=== PATIENT | female | born 1975 | race Caucasian/White ===

== ENCOUNTER 2018-12-01 15:31 | Observation (INO) | payer SELFPAY ==
--- NOTE | 2018-12-01 15:44 | PDOC ---
Rapid Medical Evaluation Time Seen by Provider: 12/01/18 15:43 Medical Evaluation: 12/01/18 15:43 I have performed a brief in-person evaluation of this patient. The patient presents with a chief complaint of: Anemia, hgb 6.6 in clinic today. C/o dizziness. Pt has h/o menorrhagia, anemia, no h/o transfusions, last took iron 8 months ago Pertinent physical exam findings:Appears pale but stable I have ordered the following:labs The patient will proceed to the ED for further evaluation. Discharge Disposition - Diagnosis Anemia Qualifiers: Anemia type: unspecified type Qualified Code(s): D64.9 - Anemia, unspecified - Referrals - Patient Instructions - Post Discharge Activity
[2018-12-01 16:10] LABS: BASO % 0.5 % (0-2.0); EOS % 2.1 % (0-4.5); LYMPH % 36.7 % (8-40); MCHC 28.2 g/dl (32.0-36.0); MEAN PLT VOLUME 8.3 fl (7.5-11.1); MONO % 6.4 % (3.8-10.2); NEUT % 54.3 % (42.8-82.8); PLATELET COUNT 272 K/MM3 (134-434); RBC 4.18 M/mm3 (3.60-5.2); RDW 22.2 % (11.6-15.6); WHITE BLOOD COUNT 7.5 K/mm3 (4.0-10.0)
[2018-12-01 16:19] LABS: EPI CELLS 2.1 /HPF (0-5/HPF); URINE APPEARANCE CLEAR; URINE BACTERIA 27.1 /hpf (NEGATIVE); URINE BILIRUBIN NEGATIVE (NEGATIVE); URINE CASTS 1 /lpf (0-8); URINE COLOR YELLOW; URINE GLUCOSE (UA) NEGATIVE (NEGATIVE); URINE KETONE NEGATIVE (NEGATIVE); URINE LEUK ESTERASE TRACE (NEGATIVE); URINE NITRITE NEGATIVE (NEGATIVE); URINE PROTEIN NEGATIVE (NEGATIVE); URINE RBC 1 /hpf (0-4); URINE WBC 3 /hpf (0-5)
[2018-12-01 16:26] LABS: MCH 15.5 pg (25.7-33.7)
[2018-12-01 16:28] LABS: HEMOGLOBIN 6.5 GM/dL (10.7-15.3)
[2018-12-01 16:37] LABS: INR 1.03 (0.83-1.09); PROTHROMBIN TIME (PATIENT) 12.2 SEC (9.7-13.0)
[2018-12-01 16:53] LABS: ALBUMIN 4.1 g/dl (3.4-5.0); ALK PHOS 88 U/L (45-117); ANION GAP 8 MMOL/L (8-16); BILIRUBIN,TOTAL 0.4 mg/dL (0.2-1); BLOOD UREA NITROGEN 13 mg/dL (7-18); CHLORIDE 108 mmol/L (98-107); CO2 24 mmol/L (21-32); CREATININE 0.6 mg/dL (0.55-1.3); GLUCOSE,RANDOM 95 mg/dL (74-106); POTASSIUM 3.9 mmol/L (3.5-5.1); SGOT/AST 14 U/L (15-37); SGPT/ALT 23 U/L (13-61); SODIUM 140 mmol/L (136-145)
--- NOTE | 2018-12-01 17:36 | PDOC ---
History of Present Illness - General Chief Complaint: Revisit, Lab Variance Stated Complaint: LOW BLOOD COUNT Time Seen by Provider: 12/01/18 15:43 History Source: Patient Exam Limitations: No Limitations - History of Present Illness Initial Comments: 12/01/18 17:29 43 yo female pmh of iron def anemia and menorrhagia sent to the ED by PCP (Dr. Higgins) for anemia. Pt admits to 1 week of intermittent HAs, generalized weakness and dizziness. LMP 11/04/2018 that lasted 8 days described as normal. Of note, Pt states 8 months ago she Past History - Past Medical History Allergies/Adverse Reactions: Allergies Allergy/AdvReac Type Severity Reaction Status Date / Time No Known Allergies Allergy Verified 12/01/18 15:53 Anemia: Yes COPD: No - Immunization History Immunization Up to Date: No - Suicide/Smoking/Psychosocial Hx Smoking History: Never smoked *Physical Exam - Vital Signs Last Vital Signs Temp Pulse Resp BP Pulse Ox 98.2 F 79 18 149/47 L 100 12/01/18 15:44 12/01/18 15:44 12/01/18 15:44 12/01/18 15:44 12/01/18 15:44 ED Treatment Course - LABORATORY CBC & Chemistry Diagram: 12/01/18 15:58 12/01/18 15:58 - ADDITIONAL ORDERS Additional order review: Laboratory Results 12/01/18 12/01/18 12/01/18 16:00 16:00 15:58 WBC RBC Hgb Hct MCV MCH MCHC RDW Plt Count MPV Absolute Neuts (auto) Neutrophils % Lymphocytes % Monocytes % Eosinophils % Basophils % Nucleated RBC % PT with INR INR Sodium Potassium Chloride Carbon Dioxide Anion Gap BUN Creatinine Creat Clearance w eGFR Random Glucose Calcium Total Bilirubin AST ALT Alkaline Phosphatase Total Protein Albumin Serum , Qual Negative Urine Color Yellow Urine Appearance Clear Urine pH 7.0 Ur Specific [place] 1.015 Urine Protein Negative Urine Glucose (UA) Negative Urine Ketones Negative Urine Blood Negative Urine Nitrite Negative Urine Bilirubin Negative Urine Urobilinogen 1.0 Ur Leukocyte Esterase Trace Urine WBC (Auto) 3 Urine RBC (Auto) 1 Urine Casts (Auto) 1 U Epithel Cells (Auto) 2.1 Urine Bacteria (Auto) 27.1 Blood Type O POSITIVE Antibody Screen Negative 12/01/18 12/01/18 12/01/18 15:58 15:58 15:58 WBC 7.5 RBC 4.18 Hgb 6.5 L* Hct 23.0 L MCV 55.0 L MCH 15.5 L MCHC 28.2 L RDW 22.2 H Plt Count 272 MPV 8.3 Absolute Neuts (auto) 4.0 Neutrophils % 54.3 Lymphocytes % 36.7 Monocytes % 6.4 Eosinophils % 2.1 Basophils % 0.5 Nucleated RBC % 0 PT with INR 12.20 INR 1.03 Sodium 140 Potassium 3.9 Chloride 108 H Carbon Dioxide 24 Anion Gap 8 BUN 13 Creatinine 0.6 Creat Clearance w eGFR 109.11 Random Glucose 95 Calcium 9.0 Total Bilirubin 0.4 AST 14 L ALT 23 Alkaline Phosphatase 88 Total Protein 8.0 Albumin 4.1 Serum , Qual Urine Color Urine Appearance Urine pH Ur Specific [place] Urine Protein Urine Glucose (UA) Urine Ketones Urine Blood Urine Nitrite Urine Bilirubin Urine Urobilinogen Ur Leukocyte Esterase Urine WBC (Auto) Urine RBC (Auto) Urine Casts (Auto) U Epithel Cells (Auto) Urine Bacteria (Auto) Blood Type Antibody Screen 12/01/18 15:58 RBC 4.18 MCV 55.0 L MCHC 28.2 L RDW 22.2 H MPV 8.3 Neutrophils % 54.3 Lymphocytes % 36.7 Monocytes % 6.4 Eosinophils % 2.1 Basophils % 0.5 Medical Decision Making - Medical Decision Making 12/01/18 20:45 consent for PRBC attained *DC/Admit/Observation/Transfer Diagnosis at time of Disposition: Anemia Qualifiers: Anemia type: unspecified type Qualified Code(s): D64.9 - Anemia, unspecified - Discharge Dispostion Condition at time of disposition: Stable Decision to Admit order: Yes - Referrals Referrals: Eliot Higgins MD [Primary Care Provider] - - Patient Instructions - Post Discharge Activity
--- NOTE | 2018-12-01 17:53 | PDOC ---
Attending Attestation - Resident Resident Name: BoogielocSanjay - ED Attending Attestation I have performed the following: I have examined & evaluated the patient, The case was reviewed & discussed with the resident, I agree w/resident's findings & plan - HPI HPI: 12/01/18 17:54 43 yo female pmh of iron def anemia and menorrhagia sent to the ED by PCP (Dr. Higgins) for anemia. Pt also admits to 1 week of intermittent HAs, generalized weakness and dizziness. LMP 11/04/18 - with history of regular periods, but heavy initially lasting typically 8-10 days. prior anemia, but no need for transfusion previously. no bloody stools, no AP. does not take iron supplements, has had iron infusion previously for anemia. 12/01/18 19:02 - Physicial Exam PE: 12/01/18 19:04 Agree with the resident's HPI and PE as documented in the electronic medical record. NAD, well appearing, PERRL, EOMI, pale conjunctiva, anicteric; neck supple. lungs clear, RRR, abdomen soft nontender. MOLINA x4, no focal neuro deficits. No peripheral edema. pale skin color for ethnicity, WWP. - Medical Decision Making 12/01/18 19:00 See HPI for details Vital signs reviewed, wnl. Prior notes reviewed, including admissions, discharges and consultations. laboratory results and imaging reviewed, basic labs and lytes wnl, notable for acute on chronic anemia, baseline Hb closer to 8, now down to 6.5/23 UA_neg, no blood. neg preg test. EKG normal sinus rhythm at 87 bpm, no interval abnormalities, narrow QRS, ST and T wave segments and morphology normal. Ed course: no acute events. txs x2, pRBC x 2 units and recheck consent in chart provided in [place] via [employer] interpretation. transfuse for symptomatic anemia likely 2/2 menorrhagia. pelvic sono to eval for pelvic etiology/fibroid as source of menorrhagia and anemia observation status in ED for transfusion and monitor for reactions/side effects and treat as necessary. 12/01/18 19:01 12/02/18 16:18 Heart Score/ECG Review #1 ECG reviewed & interpreted by me at: 18:15 General ECG Interpretation: Sinus Rhythm, Normal Rate, Normal Intervals 12/01/18 19:01 EKG normal sinus rhythm at 87 bpm, no interval abnormalities, narrow QRS, ST and T wave segments and morphology normal.
[2018-12-01 18:38] LABS: ANISOCYTOSIS 2+; MACROCYTOSIS 2+; PLATELET ESTIMATE ADEQUATE
--- NOTE | 2018-12-01 19:46 | PDOC ---
*Physical Exam - Vital Signs Last Vital Signs Temp Pulse Resp BP Pulse Ox 98.2 F 79 18 149/47 L 100 12/01/18 15:44 12/01/18 15:44 12/01/18 15:44 12/01/18 15:44 12/01/18 15:44 ED Treatment Course - LABORATORY CBC & Chemistry Diagram: 12/01/18 15:58 12/01/18 15:58 - ADDITIONAL ORDERS Additional order review: Laboratory Results 12/01/18 12/01/18 12/01/18 18:24 18:24 16:00 PT with INR INR Sodium Potassium Chloride Carbon Dioxide Anion Gap BUN Creatinine Creat Clearance w eGFR Random Glucose Calcium Total Bilirubin AST ALT Alkaline Phosphatase Total Protein Albumin Serum , Qual Negative Urine Color Urine Appearance Urine pH Ur Specific [place] Urine Protein Urine Glucose (UA) Urine Ketones Urine Blood Urine Nitrite Urine Bilirubin Urine Urobilinogen Ur Leukocyte Esterase Urine WBC (Auto) Urine RBC (Auto) Urine Casts (Auto) U Epithel Cells (Auto) Urine Bacteria (Auto) Blood Type Cancelled O POSITIVE Antibody Screen Cancelled Crossmatch See Detail 12/01/18 12/01/18 12/01/18 16:00 15:58 15:58 PT with INR INR Sodium 140 Potassium 3.9 Chloride 108 H Carbon Dioxide 24 Anion Gap 8 BUN 13 Creatinine 0.6 Creat Clearance w eGFR 109.11 Random Glucose 95 Calcium 9.0 Total Bilirubin 0.4 AST 14 L ALT 23 Alkaline Phosphatase 88 Total Protein 8.0 Albumin 4.1 Serum , Qual Urine Color Yellow Urine Appearance Clear Urine pH 7.0 Ur Specific [place] 1.015 Urine Protein Negative Urine Glucose (UA) Negative Urine Ketones Negative Urine Blood Negative Urine Nitrite Negative Urine Bilirubin Negative Urine Urobilinogen 1.0 Ur Leukocyte Esterase Trace Urine WBC (Auto) 3 Urine RBC (Auto) 1 Urine Casts (Auto) 1 U Epithel Cells (Auto) 2.1 Urine Bacteria (Auto) 27.1 Blood Type O POSITIVE Antibody Screen Negative Crossmatch See Detail 12/01/18 15:58 PT with INR 12.20 INR 1.03 Sodium Potassium Chloride Carbon Dioxide Anion Gap BUN Creatinine Creat Clearance w eGFR Random Glucose Calcium Total Bilirubin AST ALT Alkaline Phosphatase Total Protein Albumin Serum , Qual Urine Color Urine Appearance Urine pH Ur Specific [place] Urine Protein Urine Glucose (UA) Urine Ketones Urine Blood Urine Nitrite Urine Bilirubin Urine Urobilinogen Ur Leukocyte Esterase Urine WBC (Auto) Urine RBC (Auto) Urine Casts (Auto) U Epithel Cells (Auto) Urine Bacteria (Auto) Blood Type Antibody Screen Crossmatch 12/01/18 15:58 RBC 4.18 MCV 55.0 L MCHC 28.2 L RDW 22.2 H MPV 8.3 Neutrophils % 54.3 Lymphocytes % 36.7 Monocytes % 6.4 Eosinophils % 2.1 Basophils % 0.5 Medical Decision Making - Medical Decision Making 12/01/18 19:44 Pt comes with symptomatic anemia. She has known metrorrhagia. She will get transfused in the ER. She will be evaluated and likely admitted to "short stay obs status." *DC/Admit/Observation/Transfer Diagnosis at time of Disposition: Anemia Qualifiers: Anemia type: unspecified type Qualified Code(s): D64.9 - Anemia, unspecified - Referrals Referrals: Eliot Higgins MD [Primary Care Provider] - - Patient Instructions - Post Discharge Activity
--- NOTE | 2018-12-01 21:33 | PN ---
Teaching Attending Note Name of Resident: Maya Stephen ATTENDING PHYSICIAN STATEMENT I saw and evaluated the patient. I reviewed the resident's note and discussed the case with the resident. I agree with the resident's findings and plan as documented. SUBJECTIVE: Patient is 43 year old woman with PMH of iron def anemia and menorrhagia sent to the ER by PCP (Dr. Higgins) for anemia. Patient also admits to 1 week of intermittent headaches, generalized weakness and dizziness. LMP was 11/04/18 - with history of regular periods, but heavy initially lasting typically 8-10 days. Known to have anemia, but no need for transfusion previously. No chronic NSAID use. Denies bloody stools, abdominal pain, vomiting, chest pain, hematuria or dysuria. Does not take iron supplements. OBJECTIVE: Alert Vital Signs Period Temp Pulse Resp BP Sys/[place] Pulse Ox Last 24 Hr 98.2 F 79 18 149/47 100 HEENT: No Jaundice, eye redness or discharge, PERRLA, EOMI. Conjunctival pallor. Normocephalic, atraumatic. External ears are normal and hearing is grossly intact. No nasal discharge. Neck: Supple, nontender. No palpable adenopathy or thyromegaly. No JVD Chest: Good effort. Clear to auscultation and percussion. Heart: Regular. No S3, rub or murmur Abdomen: Not distended, soft, nontender and no HSM. No rebound or guarding. Normal bowel sounds. Ext: Peripheral pulses intact. No leg edema. Skin: Warm and dry. No petechiae, rash or ecchymosis. Neuro: Alert. Oriented x3. CN 2-12 grossly intact. Sensation grossly intact in all four extremities and DTR are symmetric. Psych: Appropriate mood and affect. Good insight. Abnormal Lab Results 12/01/18 12/01/18 12/01/18 15:58 15:58 15:58 Hgb 6.5 L* Hct 23.0 L MCV 55.0 L MCH 15.5 L MCHC 28.2 L RDW 22.2 H Chloride 108 H AST 14 L Crossmatch See Detail 12/01/18 18:24 Hgb Hct MCV MCH MCHC RDW Chloride AST Crossmatch See Detail ASSESSMENT AND PLAN: 1. Symptomatic Low MCV Anemia - Likely primarily due to excess menstrual blood loss. Initial stool guaiac is negative - will get two more and get CT abd/ pelvis. EKG shows NSR and no significant ST-T wave changes. 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 Will send blood for iron studies and proceed with transfusion of PRBC. Prescribe high quality oral iron supplement upon discharge. 2. DVT prophylaxis - Lovenox 40 mg SQ q 24 hours. 3. Advance directives - Full code
--- NOTE | 2018-12-02 00:12 | HP ---
CHIEF COMPLAINT: Anemia PCP: Dr. Higgins HISTORY OF PRESENT ILLNESS: 43 y/o F with PMHx of Iron Def. Anemia, Menorrhagia presents after being told by her PMD that she has a low hgb. Patient reports last visiting her PMD and OBGyn approx. 8 months ago; At that time, she was started on PO Iron supplementation. She shortly after ceased from taking the tablets bc she said they made her vomit. She has not had any follow up then. Approx. 2 weeks ago, patient started to complain of weakness, dizziness and Headache. She denies any BRBPR, Hemoptysis, hematuria. Additionally denies any trauma. LMP 11/04/18 which was normal for her. Patient mentions she has periods that last 10 days, and are heavy for the first 5 days. Patient denies any transfusions in the past. Denies any hx of NSAID use. Patient mentions that her last pap smear was normal 8 months ago. Additionally she mentions having a TVUS at that time. Denies any hx of STI/STDs. Denies any personal or family hx of Ovarian, uterine, vaginal or colorectal cancers. Deneis any recent fevers, chills, chest pain, SOB, nausea, vomiting, diarrhea, constipation. I was informed that approx 5-10 minutes after the PRBC transfusion began, patient began to feel shakey, clammy, and diaphoretic. At this time, the transfusion was stopped. Recent Travel: Denies PAST MEDICAL HISTORY: As per HPI PAST SURGICAL HISTORY: Denies Social History: Smoking: Denies Alcohol: Denies Drugs: Denies Family History: Sister: Stomach Ca Mother: DM, CVA Father: Alcoholic cirrhosis Allergies No Known Allergies Allergy (Verified 12/01/18 15:53) HOME MEDICATIONS: Home Medications Medication Instructions Recorded NK [No Known Home Medication] 12/01/18 REVIEW OF SYSTEMS As per HPI PHYSICAL EXAMINATION Vital Signs - 24 hr 12/01/18 15:44 Temperature 98.2 F Pulse Rate 79 Respiratory 18 Rate Blood Pressure 149/47 L O2 Sat by Pulse 100 Oximetry (%) Orthostatic Vitals: Supine 113/46 HR81, Sitting 120/65 HR 88, Standing 124/63 HR 88 GENERAL: A&Ox3, NAD HEAD: NCAT EYES: PERRL, EOMI, Mild conjunctival pallor EARS, NOSE, THROAT: Moist mucous membranes NECK: Supple LUNGS: clear to auscultation bilaterally. No wheezes, and no crackles. HEART: Regular rate and rhythm, normal S1 and S2 without murmur ABDOMEN: Soft, nontender, not distended, + bowel sounds, no guarding LOWER EXTREMITIES: No peripheral edema. NEUROLOGICAL: Cranial nerves II-XII intact. Normal speech SKIN: Warm, dry RECTAL: Stool in the vault, Good sphincter tone, No external hemmorrhoids visualized, No internal hemorrhoids felt, No active bleeding noted, No blood on the tip of the glove Laboratory Results - last 24 hr 12/01/18 12/01/18 12/01/18 15:58 15:58 15:58 WBC 7.5 RBC 4.18 Hgb 6.5 L* Hct 23.0 L MCV 55.0 L MCH 15.5 L MCHC 28.2 L RDW 22.2 H Plt Count 272 MPV 8.3 Absolute Neuts (auto) 4.0 Neutrophils % 54.3 Lymphocytes % 36.7 Monocytes % 6.4 Eosinophils % 2.1 Basophils % 0.5 Nucleated RBC % 0 Hypochromia 3+ Platelet Estimate Adequate Polychromasia 1+ Poikilocytosis 1+ Anisocytosis 2+ Microcytosis 1+ Macrocytosis 2+ PT with INR 12.20 INR 1.03 Sodium 140 Potassium 3.9 Chloride 108 H Carbon Dioxide 24 Anion Gap 8 BUN 13 Creatinine 0.6 Creat Clearance w eGFR 109.11 Random Glucose 95 Calcium 9.0 Total Bilirubin 0.4 AST 14 L ALT 23 Alkaline Phosphatase 88 Total Protein 8.0 Albumin 4.1 Serum , Qual Urine Color Urine Appearance Urine pH Ur Specific [place] Urine Protein Urine Glucose (UA) Urine Ketones Urine Blood Urine Nitrite Urine Bilirubin Urine Urobilinogen Ur Leukocyte Esterase Urine WBC (Auto) Urine RBC (Auto) Urine Casts (Auto) U Epithel Cells (Auto) Urine Bacteria (Auto) Stool Occult Blood Blood Type Antibody Screen Crossmatch 12/01/18 12/01/18 12/01/18 15:58 16:00 16:00 WBC RBC Hgb Hct MCV MCH MCHC RDW Plt Count MPV Absolute Neuts (auto) Neutrophils % Lymphocytes % Monocytes % Eosinophils % Basophils % Nucleated RBC % Hypochromia Platelet Estimate Polychromasia Poikilocytosis Anisocytosis Microcytosis Macrocytosis PT with INR INR Sodium Potassium Chloride Carbon Dioxide Anion Gap BUN Creatinine Creat Clearance w eGFR Random Glucose Calcium Total Bilirubin AST ALT Alkaline Phosphatase Total Protein Albumin Serum , Qual Negative Urine Color Yellow Urine Appearance Clear Urine pH 7.0 Ur Specific [place] 1.015 Urine Protein Negative Urine Glucose (UA) Negative Urine Ketones Negative Urine Blood Negative Urine Nitrite Negative Urine Bilirubin Negative Urine Urobilinogen 1.0 Ur Leukocyte Esterase Trace Urine WBC (Auto) 3 Urine RBC (Auto) 1 Urine Casts (Auto) 1 U Epithel Cells (Auto) 2.1 Urine Bacteria (Auto) 27.1 Stool Occult Blood Blood Type O POSITIVE Antibody Screen Negative Crossmatch See Detail 12/01/18 12/01/18 12/01/18 18:24 18:24 21:10 WBC RBC Hgb Hct MCV MCH MCHC RDW Plt Count MPV Absolute Neuts (auto) Neutrophils % Lymphocytes % Monocytes % Eosinophils % Basophils % Nucleated RBC % Hypochromia Platelet Estimate Polychromasia Poikilocytosis Anisocytosis Microcytosis Macrocytosis PT with INR INR Sodium Potassium Chloride Carbon Dioxide Anion Gap BUN Creatinine Creat Clearance w eGFR Random Glucose Calcium Total Bilirubin AST ALT Alkaline Phosphatase Total Protein Albumin Serum , Qual Urine Color Urine Appearance Urine pH Ur Specific [place] Urine Protein Urine Glucose (UA) Urine Ketones Urine Blood Urine Nitrite Urine Bilirubin Urine Urobilinogen Ur Leukocyte Esterase Urine WBC (Auto) Urine RBC (Auto) Urine Casts (Auto) U Epithel Cells (Auto) Urine Bacteria (Auto) Stool Occult Blood Negative Blood Type O POSITIVE Cancelled Antibody Screen Cancelled Crossmatch See Detail ASSESSMENT/PLAN: 43 y/o F with PMHx of Iron Def. Anemia, Menorrhagia presents after being told by her PMD that she has a low hgb #Symptomatic Microcytic Anemia -In the setting of Menorrhagia; FOBT Negative, No hx of NSAID use, No hx of Diverticulosis -Hematology consulted by ED and advised transfusions of 2units pRBCs however patient had a transfusion reaction -Serial CBC's -Check Iron stores -IV Venofer as per hematology rec's #FEN -No standing fluids -Lytes WNL -Regular diet #PPx -DVT: SCDs Visit type - Emergency Visit Emergency Visit: Yes ED Registration Date: 12/02/18 Care time: The patient presented to the Emergency Department on the above date and was hospitalized for further evaluation of their emergent condition. - New Patient This patient is new to me today: Yes Date on this admission: 12/02/18 - Critical Care Critical Care patient: No
[2018-12-02 02:27] LABS: EPI CELLS 8.3 /HPF (0-5/HPF); URINE APPEARANCE CLOUDY; URINE BACTERIA 105.5 /hpf (NEGATIVE); URINE BILIRUBIN NEGATIVE (NEGATIVE); URINE CASTS 3 /lpf (0-8); URINE COLOR YELLOW; URINE GLUCOSE (UA) NEGATIVE (NEGATIVE); URINE KETONE NEGATIVE (NEGATIVE); URINE LEUK ESTERASE 1+ (NEGATIVE); URINE NITRITE NEGATIVE (NEGATIVE); URINE PROTEIN NEGATIVE (NEGATIVE); URINE RBC 2 /hpf (0-4); URINE UROBILINOGEN 0.2 mg/dL (0.2-1.0); URINE WBC 11 /hpf (0-5)
[2018-12-02 03:19] VITALS: BMI 25.5
[2018-12-02 05:11] LABS: BASO % 0.5 % (0-2.0); EOS % 2.1 % (0-4.5); LYMPH % 43.8 % (8-40); MCHC 28.9 g/dl (32.0-36.0); MEAN CELL VOLUME 55.6 fl (80-96); MEAN PLT VOLUME 8.7 fl (7.5-11.1); MONO % 6.4 % (3.8-10.2); NEUT % 47.2 % (42.8-82.8); PLATELET COUNT 241 K/MM3 (134-434); RBC 3.92 M/mm3 (3.60-5.2); RDW 22.5 % (11.6-15.6); WHITE BLOOD COUNT 8.1 K/mm3 (4.0-10.0)
[2018-12-02 05:14] LABS: MCH 16.1 pg (25.7-33.7)
[2018-12-02 05:18] LABS: HEMATOCRIT 21.8 % (32.4-45.2); HEMOGLOBIN 6.3 GM/dL (10.7-15.3)
[2018-12-02 05:41] LABS: ALBUMIN 3.5 g/dl (3.4-5.0); ALK PHOS 78 U/L (45-117); ANION GAP 7 MMOL/L (8-16); BILIRUBIN,TOTAL 0.3 mg/dL (0.2-1); BLOOD UREA NITROGEN 14 mg/dL (7-18); CALCIUM 8.8 mg/dL (8.5-10.1); CHLORIDE 111 mmol/L (98-107); CO2 24 mmol/L (21-32); CREATININE 0.6 mg/dL (0.55-1.3); GLUCOSE,RANDOM 103 mg/dL (74-106); MAGNESIUM 2.5 mg/dL (1.8-2.4); PHOSPHOROUS 3.7 mg/dL (2.5-4.9); POTASSIUM 3.9 mmol/L (3.5-5.1); SGOT/AST 12 U/L (15-37); SGPT/ALT 20 U/L (13-61); SODIUM 142 mmol/L (136-145); TOT PROT 7.1 g/dl (6.4-8.2)
[2018-12-02] MEDS ORDERED: IRON SUCROSE INJECTION 300 MG in SODIUM CHLORIDE 235 ML IVPB ONE (07:30)
--- NOTE | 2018-12-02 07:59 | PN ---
Progress Note, Physician Chief Complaint: Patient denies any SOb chest pain or Palpitation History of Present Illness: 43 y/o F with PMHx of Iron Def. Anemia, Menorrhagia presents after being told by her PMD that she has a low hgb. Patient reports last visiting her PMD and OBGyn approx. 8 months ago; - Current Medication List Current Medications: Active Medications Iron Sucrose 300 mg/ Sodium (Chloride) 250 mls @ 166.667 mls/hr IVPB ONCE ONE Stop: 12/02/18 08:59 - Objective Vital Signs: Vital Signs Temperature 98.5 F 12/02/18 06:33 Pulse Rate 71 12/02/18 06:33 Respiratory Rate 18 12/02/18 06:33 Blood Pressure 112/56 L 12/02/18 06:33 O2 Sat by Pulse Oximetry (%) 98 12/02/18 03:04 HEENT: Mm moist, anemia NECK: No JVd No Bruit CHEST: CTA B/L CVS: s1S2 R ABD: no distention, non tender BS + EXT: No edema feet, no calf tenderness ENGINEER SYSTEM ADMINISTRATOR: AOx3 non focal Labs: CBC, BMP 12/02/18 04:30 12/02/18 04:30 INR, PTT INR 1.03 (0.83-1.09) 12/01/18 15:58 Problem List - Problems (1) Symptomatic anemia Assessment/Plan: patient is a known case of chronic JUAN FRANCISCO due to Menorrhagia, last nigh developed rigors with blood transfusion, so transfusion was stopped, I discused with blood bank and Pathologist Dr. leonard Miramontes recomonded not a hemolytic reaction if indicated transfusion can be given will transfuse 1 unit PRBC after premediction with Tylenol and Benadry and observe. F/U H/H, patient received IV Iron Infusion, will Dc the patient after transfusion on Po Iron and F/U with her PCP and LIQUEFIER as out patient LIQUEFIER ultrasound shows, leiomyoma, endometrial thickness 0.7 mm. Code(s): D64.9 - ANEMIA, UNSPECIFIED
[2018-12-02 10:28] LABS: EPI CELLS 4.3 /HPF (0-5/HPF); URINE APPEARANCE CLEAR; URINE BILIRUBIN NEGATIVE (NEGATIVE); URINE CASTS 3 /lpf (0-8); URINE COLOR YELLOW; URINE GLUCOSE (UA) NEGATIVE (NEGATIVE); URINE KETONE NEGATIVE (NEGATIVE); URINE LEUK ESTERASE TRACE (NEGATIVE); URINE NITRITE NEGATIVE (NEGATIVE); URINE PROTEIN NEGATIVE (NEGATIVE); URINE RBC 1 /hpf (0-4); URINE UROBILINOGEN 0.2 mg/dL (0.2-1.0); URINE WBC 6 /hpf (0-5)
[2018-12-02 11:33] LABS: ANISOCYTOSIS 2+; MACROCYTOSIS 1+; OVALOCYTE 2+; PLATELET ESTIMATE NORMAL; TEAR DROP CELLS 2+
[2018-12-02 11:58] LABS: BASO % 0.7 % (0-2.0); HEMATOCRIT 22.4 % (32.4-45.2); LYMPH % 33.4 % (8-40); MCHC 29.1 g/dl (32.0-36.0); MEAN CELL VOLUME 56.1 fl (80-96); MEAN PLT VOLUME 8.7 fl (7.5-11.1); MONO % 9.3 % (3.8-10.2); NEUT % 54.6 % (42.8-82.8); PLATELET COUNT 240 K/MM3 (134-434); RDW 22.7 % (11.6-15.6); WHITE BLOOD COUNT 6.4 K/mm3 (4.0-10.0)
[2018-12-02 12:03] LABS: MCH 16.3 pg (25.7-33.7)
[2018-12-02 12:04] LABS: HEMOGLOBIN 6.5 GM/dL (10.7-15.3)
--- NOTE | 2018-12-02 15:10 | EKG ---
Test Reason : Blood Pressure : / mmHG Vent. Rate : 087 BPM Atrial Rate : 087 BPM P-R Int : 120 ms QRS Dur : 078 ms QT Int : 382 ms P-R-T Axes : 045 053 035 degrees QTc Int : 459 ms POOR DATA QUALITY, INTERPRETATION MAY BE ADVERSELY AFFECTED NORMAL SINUS RHYTHM NORMAL ECG NO PREVIOUS ECGS AVAILABLE Confirmed by VIJAY TOVAR MD ([id number]) on 12/02/2018 3:10:11 PM Referred By: Confirmed By:VIJAY TOVAR MD
[2018-12-02] MEDS ORDERED: ACETAMINOPHEN 325 MG TABLET (FP) PO ONE (16:24)
--- NOTE | 2018-12-03 08:39 | PN ---
Teaching Attending Note Name of Resident: Juan Carlos Smith ATTENDING PHYSICIAN STATEMENT I saw and evaluated the patient. I reviewed the resident's note and discussed the case with the resident. I agree with the resident's findings and plan as documented. SUBJECTIVE: asymptomatic since transfusion OBJECTIVE: Vital Signs Temperature 98.5 F 12/03/18 06:00 Pulse Rate 78 12/03/18 06:00 Respiratory Rate 18 12/03/18 06:00 Blood Pressure 124/69 12/03/18 06:00 O2 Sat by Pulse Oximetry (%) 98 12/02/18 16:00 HEENT: Mm moist, anemia NECK: No JVd No Bruit CHEST: CTA B/L CVS: s1S2 R ABD: no distention, non tender BS + EXT: No edema feet, no calf tenderness EVP AND CHIEF OPERATING OFFICER: AOx3 non focal Assessment/Plan: patient is a known case of chronic JUAN FRANCISCO due to Menorrhagia, last nigh developed rigors with blood transfusion, so transfusion was stopped, last nigh recived transfusion after cleared by Pathologist with premedication F/U H/H if stable can be DC home on PO Iron F/U with TACKER OFF. ultrasound shows, leiomyoma, endometrial thickness 0.7 mm. Problem List - Problems (1) Symptomatic anemia Assessment/Plan: patient is a known case of chronic JUAN FRANCISCO due to Menorrhagia, last nigh developed rigors with blood transfusion, so transfusion was stopped, I discused with blood bank and Pathologist Dr. leonard Miramontes recomonded not a hemolytic reaction if indicated transfusion can be given will transfuse 1 unit PRBC after premediction with Tylenol and Benadry and observe. Rpt Hb 8.4 received IV Iron Infusion, will Dc the patient on Po Iron and F/U with her PCP and TACKER OFF as out patient TACKER OFF ultrasound shows, leiomyoma, endometrial thickness 0.7 mm. Code(s): D64.9 - ANEMIA, UNSPECIFIED
[2018-12-03 09:08] LABS: BASO % 0.9 % (0-2.0); HEMATOCRIT 27.2 % (32.4-45.2); HEMOGLOBIN 8.1 GM/dL (10.7-15.3); LYMPH % 33.1 % (8-40); MCHC 29.8 g/dl (32.0-36.0); MEAN CELL VOLUME 61.4 fl (80-96); MEAN PLT VOLUME 8.6 fl (7.5-11.1); MONO % 6.1 % (3.8-10.2); NEUT % 56.9 % (42.8-82.8); PLATELET COUNT 250 K/MM3 (134-434); RBC 4.44 M/mm3 (3.60-5.2); RDW 29.7 % (11.6-15.6); WHITE BLOOD COUNT 8.6 K/mm3 (4.0-10.0)
[2018-12-03 09:13] LABS: MCH 18.3 pg (25.7-33.7)
[2018-12-03 09:31] LABS: ANION GAP 7 MMOL/L (8-16); BLOOD UREA NITROGEN 9 mg/dL (7-18); CALCIUM 8.8 mg/dL (8.5-10.1); CHLORIDE 111 mmol/L (98-107); CO2 21 mmol/L (21-32); CREATININE 0.5 mg/dL (0.55-1.3); GLUCOSE,RANDOM 91 mg/dL (74-106); POTASSIUM 4.1 mmol/L (3.5-5.1); SODIUM 139 mmol/L (136-145)
[2018-12-03 11:42] VITALS: BP 124/70; PULSE 83; TEMP 97.9
--- NOTE | 2018-12-03 14:18 | DS ---
Physical Exam: SUBJECTIVE: Patient seen and examined. No acute events overnight. Offers no complaints. s/p 2 Units PRBC Tolerated well. OBJECTIVE: Vital Signs Period Temp Pulse Resp BP Sys/Oleary Pulse Ox Last 24 Hr 97.9 F-98.5 F 75-105 18-20 112-135/48-81 98 PHYSICAL EXAM GENERAL: The patient is awake, alert, and fully oriented, in no acute distress. HEAD: Normal with no signs of trauma. EYES: PERRL, extraocular movements intact, sclera anicteric, conjunctiva clear. ENT: oropharynx clear without exudates, moist mucous membranes. NECK: supple. LUNGS: Breath sounds equal, clear to auscultation bilaterally, no wheezes, no crackles, no accessory muscle use. HEART: Regular rate and rhythm, S1, S2 without murmur, rub or gallop. ABDOMEN: Soft, nontender, nondistended, normoactive bowel sounds, no guarding EXTREMITIES: 2+ pulses, warm, well-perfused, no edema. NEUROLOGICAL: Cranial nerves II through XII grossly intact. Normal speech, gait not observed. SKIN: Warm, dry, normal turgor, no rashes or lesions noted. LABS Laboratory Results - last 24 hr 12/01/18 12/03/18 12/03/18 15:58 08:20 08:20 WBC 8.6 RBC 4.44 Hgb 8.1 L Hct 27.2 L D MCV 61.4 L D MCH 18.3 L D MCHC 29.8 L RDW 29.7 H Plt Count 250 MPV 8.6 Absolute Neuts (auto) 4.9 Neutrophils % 56.9 Lymphocytes % 33.1 Monocytes % 6.1 Eosinophils % 3.0 Basophils % 0.9 Nucleated RBC % 0 Sodium 139 Potassium 4.1 Chloride 111 H Carbon Dioxide 21 Anion Gap 7 L BUN 9 Creatinine 0.5 L Creat Clearance w eGFR 134.66 Random Glucose 91 Calcium 8.8 Blood Type O POSITIVE Antibody Screen Negative Crossmatch See Detail HOSPITAL COURSE: Date of Admission:12/02/18 43 y/o F with PMHx of Iron Def. Anemia, Menorrhagia presents after being told by her PMD that she has a low hgb #Symptomatic Microcytic Anemia -In the setting of Menorrhagia; FOBT Negative -In ED patient had transfusion reaction. She said she felt clammy, diophoretic. -She was then administered Benadryl and Tylenol for reaction. -s/p 2 U PRBC after benadryl and tylenol administered -Was given IV Iron. Did not tolerate PO iron. -Hgb today 8.1. Responded appropriately to transfusion. -TVUS: ultrasound shows, leiomyoma, endometrial thickness 0.7 mm. 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 #FEN -No standing fluids -Lytes WNL -Regular diet #PPx -DVT: SCDs Date of Discharge: 12/03/18 Minutes to complete discharge: 35 Discharge Summary Reason For Visit: ANEMIA Condition: Stable - Instructions Diet, Activity, Other Instructions: You were here because of anemia. You were given 2 units of blood and improved. You were found to have a leiomyoma and endometrial thickness 0.7 mm You will need to follow up with your primary care physician in 1 week to repeat blood work (CBC). It is also important to make an appointment with your deicer inspector pneumatic this week because of the abnormal Ultrasound findings. You said you are not able to tolerate iron pills. Please eat foods high in iron as discussed with you. Example: spinach and Kale If you experience worsening shortness of breath, dizziness, and chest pain, please go to your nearest emergency room. Disposition: HOME - Home Medications Comprehensive Discharge Medication List: Ambulatory Orders NK [No Known Home Medication] 12/01/18 This patient is new to me today: Yes Date on this admission: 12/03/18 Emergency Visit: Yes ED Registration Date: 12/02/18 Care time: The patient presented to the Emergency Department on the above date and was hospitalized for further evaluation of their emergent condition. Critical Care patient: No - Discharge Referral Referred to [facility] No
--- NOTE | 2018-12-03 14:21 | CONSULT ---
Consult Consult Specialty:: Hematology Referred by:: Medicine Reason for Consultation:: Anemia - History of Present Illness Chief Complaint: Presented to ER with symptomatic anemia - Hb 6.3. Transfused. History of Present Illness: Has experienced severe anemia on prior occasions, attributable to menorrhagia. Has received IV iron on occasion before. Reports she has been told to take oral iron in the past, but reports difficulty with compliance due to nausea. - History Source History Provided By: Patient Limitations to Obtaining History: No Limitations - Past Medical History ...LMP: 11/04/18 ...: No - Alcohol/Substance Use Hx Alcohol Use: No - Smoking History Smoking history: Never smoked Home Medications - Allergies Allergies/Adverse Reactions: Allergies Allergy/AdvReac Type Severity Reaction Status Date / Time No Known Allergies Allergy Verified 12/01/18 15:53 - Home Medications Home Medications: Ambulatory Orders NK [No Known Home Medication] 12/01/18 Physical Exam Vital Signs: Vital Signs Temperature 97.9 F 12/03/18 09:45 Pulse Rate 83 12/03/18 09:45 Respiratory Rate 18 12/03/18 09:45 Blood Pressure 124/70 12/03/18 09:45 O2 Sat by Pulse Oximetry (%) 98 12/02/18 16:00 Constitutional: Yes: Well Nourished, Calm, Pallor Eyes: Yes: Conjunctiva Clear HENT: Yes: Atraumatic Neck: Yes: Trachea Midline. No: Lymphadenopathy Cardiovascular: Yes: Regular Rate and Rhythm, S1, S2. No: Murmur Respiratory: Yes: Regular, CTA Bilaterally Gastrointestinal: Yes: Normal Bowel Sounds, Soft. No: Palpable Mass Musculoskeletal: Yes: WNL Extremities: Yes: WNL Edema: No Integumentary: No: Bruising, Petechiae Neurological: Yes: Alert, Oriented ...Motor Strength: WNL Psychiatric: Yes: WNL, Alert, Oriented Labs: CBC, BMP 12/03/18 08:20 12/03/18 08:20 Assessment/Plan Symptomatic iron deficiency anemia, recurrent episode, due to menorrhagia. Hb improved following transfusion, but iron deficit still estimated to be approximately 1g. Has already received 300mgs Iv iron here. Should continue oral iron after discharge until Hb and ferritin are within normal range -if oral iron is poorly tolerated then should receive further IV iron. Importance of follow up with [facility] emphasized to patient, so prevent further recurrences.
[2018-12-03] MEDS ORDERED: FERROUS SO4 325 MG TABLET (FP) PO SCH (17:30)
== END 2018-12-03 13:27 | disposition home or self-care (01) ==
LOC: JER 15:31 → JERBED 21:37 → UNDOADMOB 21:37 → INTOOBSV 21:37 → JERBED 12-02 00:12 → OBSVTOIN 12-02 00:12 → INTOOBSV 12-02 00:12 → JERBED 12-02 02:33 → J8W 12-02 02:33 → UNDODISOB 12-03 13:27
PROVIDERS: ADMIT Internal Medicine; ATTEND Internal Medicine
CPT/HCPCS: 36415; 36430; 36511; 76830-TC; 80048; 80053; 81003; 82272; 83735; 84100; 84703; 85025; 85610; 86078; 86850; 86900; 86901; 86922; 93005; 93010; 99285-25; G0378; J1756; P9038; P9058

== ENCOUNTER 2021-10-03 17:08 | Emergency (ER) | payer OTHER ==
[2021-10-03 17:29] VITALS: TEMP 97.8; BMI 25.0
[2021-10-03] MEDS ORDERED: SODIUM CHLORIDE 1,000 ML IV STA (18:37)
[2021-10-03 19:02] LABS: BASO % 0.4 % (0-2.0); HEMATOCRIT 32.8 % (32.4-45.2); HEMOGLOBIN 11.1 GM/dL (10.7-15.3); LYMPH % 21.7 % (8-40); MCHC 33.7 g/dl (32.0-36.0); MEAN CELL VOLUME 83.1 fl (80-96); MEAN PLT VOLUME 8.1 fl (7.5-11.1); MONO % 5.5 % (3.8-10.2); NEUT % 71.4 % (42.8-82.8); PLATELET COUNT 253 10^3/uL (134-434); RBC 3.95 M/mm3 (3.60-5.2); RDW 14.6 % (11.6-15.6); WHITE BLOOD COUNT 9.6 K/mm3 (4.0-10.0)
[2021-10-03 19:07] LABS: EPI CELLS 20 /uL (0-25.1); HCG,QUALITATIVE URINE Negative; HYALINE CASTS 2 /uL (0-3.1); URINE APPEARANCE TURBID; URINE BILIRUBIN NEGATIVE (NEGATIVE); URINE COLOR ORANGE; URINE GLUCOSE (UA) NEGATIVE (NEGATIVE); URINE KETONE TRACE (NEGATIVE); URINE LEUK ESTERASE 1+ (NEGATIVE); URINE NITRITE POSITIVE (NEGATIVE); URINE PROTEIN 2+ (NEGATIVE); URINE RBC 19676 /uL (0-23.9); URINE WBC 183 /uL (0-25.8)
[2021-10-03] MEDS ORDERED: CEPHALEXIN MONOHYDRATE 500 MG CAPSULE (UD) PO ONE (19:24)
[2021-10-03 19:27] LABS: ALBUMIN 3.6 g/dl (3.4-5.0); CALCIUM 8.6 mg/dL (8.5-10.1)
[2021-10-03 19:29] LABS: CREATININE 0.8 mg/dL (0.55-1.3)
[2021-10-03 19:31] LABS: BILIRUBIN,TOTAL 0.2 mg/dL (0.2-1); TOT PROT 7.3 g/dl (6.4-8.2); URINE BACTERIA 6 /uL (0-1359)
[2021-10-03] MEDS ORDERED: CEPHALEXIN MONOHYDRATE 500 MG CAPSULE (UD) ONE (19:44)
[2021-10-03 19:46] VITALS: BP 123/68; PULSE 81
== END 2021-10-03 20:05 | disposition home or self-care (01) ==
LOC: JER 17:08
PROC: 3E0337Z Introduction of Electrolytic and Water Balance Substance into Peripheral Vein, Percutaneous Approach (ICD-10-PCS; principal; 2021-10-03)
DX: N92.1 Excessive and frequent menstruation with irregular cycle (principal); N39.0 Urinary tract infection, site not specified
CPT/HCPCS: 36415; 80053; 81003; 84703; 85025; 86850; 86900; 86901; 87086; 96360; 99284-25